=== PATIENT | male | born 1970 | race Caucasian/White ===

== ENCOUNTER 2019-05-12 19:40 | Emergency (ER) | payer BC ==
[2019-05-12] MEDS ORDERED: Amoxicillin/Clavulanate K 875-125 MG Tab ONE (19:45)
[2019-05-12 19:57] VITALS: BP 131/78; PULSE 82
--- NOTE | 2019-05-12 20:06 | EDM.PDOC ---
ED HPI GENERAL MEDICAL PROBLEM - General Chief Complaint: General Stated Complaint: EAR PAIN Time Seen by Provider: 05/12/19 19:50 Source of Information: Reports: Patient History Limitations: Reports: No Limitations - History of Present Illness INITIAL COMMENTS - FREE TEXT/NARRATIVE: This is a 49yo M here for cough, sputum, and left ear pain that has worsened the past few days. He had an appointment in clinic on Sun but felt he couldn't wait that long. Onset: Gradual Duration: Day(s):, Getting Worse Location: Reports: Chest, Other (left ear) Severity: Moderate Improves with: Reports: None Worsens with: Reports: Other (cough) ED ROS GENERAL - Review of Systems Review Of Systems: Comprehensive ROS is negative, except as noted in HPI. ED EXAM, GENERAL - Physical Exam Exam: See Below Exam Limited By: No Limitations General Appearance: Alert, WD/WN, Mild Distress Eye Exam: Bilateral Eye: EOMI Ears: Other (left erythema and swelling, loss of landmarks and inflamed; right fluid) Ear Exam: Left Ear: Erythema, TM Red, TM Bulging Nose: Normal Inspection Throat/Mouth: Normal Inspection Head: Atraumatic, Normocephalic Neck: Normal Inspection Respiratory/Chest: No Respiratory Distress, Lungs Clear, Normal Breath Sounds Cardiovascular: Normal Peripheral Pulses, Regular Rate, Rhythm Extremities: Normal Inspection Neurological: Alert, Oriented Psychiatric: Normal Affect, Normal Mood Skin Exam: Warm, Dry, Intact Course - Vital Signs Last Recorded V/S: Last Vital Signs Temp 37.1 C 05/12/19 19:43 Pulse 82 05/12/19 19:43 Resp 20 05/12/19 19:43 BP 131/78 05/12/19 19:43 Pulse Ox 97 05/12/19 19:43 Departure - Departure Time of Disposition: 20:00 Disposition: Home, Self-Care 01 Condition: Good Clinical Impression: Otitis media Qualifiers: Otitis media type: suppurative Chronicity: acute Laterality: left Recurrence: not specified as recurrent Spontaneous tympanic membrane rupture: without spontaneous rupture Qualified Code(s): H66.002 - Acute suppurative otitis media without spontaneous rupture of ear drum, left ear - Discharge Information Instructions: Otitis Media, Adult, [id number] Referrals: PCP,None [Primary Care Provider] - Forms: ED Department Discharge Additional Instructions: Discharge home. Augmentin 1 tablet by mouth 2 times a day. Follow up with your primary provider as needed. Call or return to the ER if you have any questions or concerns. Sepsis Event Note - Evaluation Sepsis Screening Result: No Definite Risk - Focused Exam Vital Signs: Vital Signs Temp Pulse Resp BP Pulse Ox 05/12/19 19:43 37.1 C 82 20 131/78 97 Date Exam was Performed: 05/12/19 Time Exam was Performed: 19:59 - Problem List & Annotations (1) Otitis media SNOMED Code(s): 26198057 Code(s): H66.90 - OTITIS MEDIA, UNSPECIFIED, UNSPECIFIED EAR Status: Acute Current Visit: Yes Qualifiers: Otitis media type: suppurative Chronicity: acute Laterality: left Recurrence: not specified as recurrent Spontaneous tympanic membrane rupture: without spontaneous rupture Qualified Code(s): H66.002 - Acute suppurative otitis media without spontaneous rupture of ear drum, left ear - Problem List Review Problem List Initiated/Reviewed/Updated: Yes - Assessment/Plan Plan: Counseled on close monitoring and f/u. Discussed antibiotics and side effects. Rtc or ER as directed. F/u if symptoms persist or worsen.
== END 2019-05-12 20:01 | disposition home or self-care (01) ==
LOC: LB.ED 19:40
DX: H66.002 Acute suppurative otitis media without spontaneous rupture of ear drum, left ear (principal)
CPT/HCPCS: 99283; A9270-GY